=== PATIENT | male | born 1990 | race American Indian/Alaskan Native ===

== ENCOUNTER 2021-08-10 14:03 | Emergency (ER) | payer SELFPAY ==
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
--- NOTE | 2021-08-10 14:56 | XRay Report ---
LEFT FOOT 3 VIEWS INDICATION: Left great toe pain.. COMPARISON: None. IMPRESSION: There is a subtle cortical defect at the medial base of the distal phalanx of the great toe which could represent a nondisplaced fracture/chip fracture. The remaining bony structures are i ntact. No significant joint pathology. The soft tissues are unremarkable. Signer Name: Christopher Greenwood Jr, MD Signed: 08/10/2021 2:52 PM Workstation Name: [id number]
[2021-08-10] MEDS ORDERED: diazePAM 5 MG TAB PO ONE (16:21)
[2021-08-10] MEDS ORDERED: KETOROLAC 60 MG/2 ML INJ IM ONE (16:21)
[2021-08-10] MEDS ORDERED: dexAMETHasone 20 MG/5 ML VIAL IM ONE (16:21)
[2021-08-10] MEDS ORDERED: IBUPROFEN 600 MG TAB PO ONE (16:23)
[2021-08-10] MEDS ORDERED: ACETAMINOPHEN 325 MG TAB PO ONE (16:23)
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
[2021-08-10 17:36] VITALS: BP 128/86
== END 2021-08-10 17:36 | disposition home or self-care (01) ==
LOC: ED 14:03
DX: S92.425A Nondisplaced fracture of distal phalanx of left great toe, initial encounter for closed fracture (principal); Z79.899 Other long term (current) drug therapy; V87.7XXA Person injured in collision between other specified motor vehicles (traffic), initial encounter; Y93.89 Activity, other specified; Y92.488 Other paved roadways as the place of occurrence of the external cause; Y99.8 Other external cause status
CPT/HCPCS: 96372; 99283